=== PATIENT | female | born 1980 | race Caucasian/White ===

== ENCOUNTER 2018-01-12 14:28 | Emergency (ER) | payer MEDICARE, MEDICAID ==
[2018-01-12 16:01] LABS: #Eosinphils 0.1 thou/uL (0.0-0.7); #Lymphocytes 2.2 thou/uL (1.20-3.40); #Monocytes 0.9 thou/uL (0.11-0.59); #Neutrophils 10.4 thou/uL (1.40-6.50); %Basophils 0.4 % (0.0-1.0); %Eosinophils 0.7 % (0.0-10.0); %Lymphocytes 15.8 % (21.0-51.0); %Monocytes 6.6 % (0.0-10.0); %Neutrophils 76.5 % (42.0-75.0); Hemoglobin 14.4 g/dL (12.0-16.0); Mean Corpuscular HGB CONC 33.6 g/dL (32.0-36.0); Mean Corpuscular Hemoglobin 29.9 pg (27.0-31.0); Mean Corpuscular Volume 89.1 fL (78.0-98.0); Mean Platelet Volume 5.9 fL (7.4-10.4); Platelet Count 361 thou/uL (130-400); RBC Distribution Width 11.7 % (11.5-14.5); Red Blood Cell (RBC) Count 4.82 mill/uL (4.20-5.40); White Blood Cell (WBC) Count 13.6 thou/uL (4.8-10.8)
[2018-01-12 16:18] LABS: BHCG - Serum Negative (NEGATIVE); Pregs Control Background? CLEAR/WHITE (CLR/WHITE); Pregs Control Bar Appear? YES (CONTROL BAR)
[2018-01-12 16:22] LABS: ALT (SGPT) 13 U/L (8-55); AST (SGOT) 13 U/L (5-34); Albumin 4.2 g/dL (3.5-5.0); Alkaline Phosphatase 101 U/L (40-150); Anion Gap 14 mmol/L (10-20); BUN (Urea Nitrogen) 10 mg/dL (7.0-18.7); Bilirubin, Total 0.3 mg/dL (0.2-1.2); Calc. Creatinine Clearance 0 mL/min (70-130); Carbon Dioxide 21 mmol/L (22-29); Chloride 105 mmol/L (98-107); Estimated GFR-MDRD 86; Globulin 3.1 g/dL (2.4-3.5); Glucose 106 mg/dL (70-105); Potassium 3.9 mmol/L (3.5-5.1); Protein, Total 7.3 g/dL (6.0-8.3); Sodium 136 mmol/L (136-145)
[2018-01-12] MEDS ORDERED: Dexamethasone 10 MG/ML VIAL ONE (17:20)
[2018-01-12] MEDS ORDERED: cefTRIAXone\\ROCEPHIN 1 GM VIAL ONE (17:20)
[2018-01-12] MEDS ORDERED: Lidocaine 1% (PF) 30 ML VIAL ONE (17:20)
--- NOTE | 2018-01-12 17:40 | RAD ---
CHEST ONE VIEW: HISTORY: A 37-year-old female with a history of cough and bodyaches. FINDINGS: Heart size is within normal limits. The bronchovascular markings are increased bilaterally, particul juan manuel in the infrahilar regions, although some of this increased density is probably related to body h abitus and more extensive soft tissue density overlying the lower chest. No confluent pneumonia, ove rt edema, or pleural effusion. IMPRESSION: Mild increased bronchovascular markings. No confluent pneumonia or overt edema. POS: [facility]
== END 2018-01-12 17:50 | disposition home or self-care (01) ==
LOC: ERS 14:28
DX: I10 Essential (primary) hypertension (principal); E78.5 Hyperlipidemia, unspecified; Z79.899 Other long term (current) drug therapy
CPT/HCPCS: 36415; 71045; 80053; 83690; 84703; 85025; 87804; 96372; J0696; J1100; J2001